=== PATIENT | female | born 1960 | race Caucasian/White ===

== ENCOUNTER 2017-04-16 01:53 | Emergency (ER) | payer OTHER ==
[~2017-04-16] VITALS: Ht 160 cm; Wt 71.7 kg
[~2017-04-16 01:53] MED LIST: ADDERALL 10 MG10 MG PO; LASIX 20 MG TAB20 MG PO; LIPITOR20 MG PO; MEDROL DOSPAK21 TA1 PO; MEDROLDOSEPACK PO; MELOXICAM15 MG PO; NORCO 10-325 T1 EACH PO; NORCO 5-325 TA1 EACH PO; OXYCONTIN20 M1 PO; SEROQUEL 50 MG50 MG PO; TEMAZEPAM30 MG PO; TYLENOL325 MG PO; XANAX 0.5 MG0.5 MG; XANAX 1 MG TABLE1 MG PO; XANAX1 MG PO; ZANTAC 150MG T150 MG PO
== END 2017-04-16 02:37 | disposition home or self-care (01) ==
LOC: ER 01:53
DX: S83.91XA Sprain of unspecified site of right knee, initial encounter (principal); F41.0 Panic disorder [episodic paroxysmal anxiety]; Z88.2 Allergy status to sulfonamides; W10.9XXA Fall (on) (from) unspecified stairs and steps, initial encounter; Y93.89 Activity, other specified; Y92.89 Other specified places as the place of occurrence of the external cause; Y99.8 Other external cause status

== ENCOUNTER 2017-05-06 09:19 | Emergency (ER) | payer OTHER ==
[~2017-05-06] VITALS: Ht 160 cm; Wt 72.6 kg
== END 2017-05-06 09:47 | disposition home or self-care (01) ==
LOC: ER 09:19
DX: Z76.0 Encounter for issue of repeat prescription (principal); F41.9 Anxiety disorder, unspecified; F32.9 Major depressive disorder, single episode, unspecified; F17.210 Nicotine dependence, cigarettes, uncomplicated; Z72.89 Other problems related to lifestyle; Z96.652 Presence of left artificial knee joint; Z88.2 Allergy status to sulfonamides

== ENCOUNTER → 2017-06-03 | Outpatient (CLI) | payer OTHER | LOC: MRI 06-02 14:18 | DX: S89.91XA Unspecified injury of right lower leg, initial encounter (principal); M17.11 Unilateral primary osteoarthritis, right knee; M25.461 Effusion, right knee; X58.XXXA Exposure to other specified factors, initial encounter; Y93.89 Activity, other specified; Y92.89 Other specified places as the place of occurrence of the external cause; Y99.8 Other external cause status ==

== ENCOUNTER 2018-11-19 17:53 | Emergency (ER) | payer OTHER ==
[~2018-11-19] VITALS: Ht 160 cm; Wt 77.1 kg
[~2018-11-19 17:53] MED LIST changes: +FLUOXETINE HCL40 MG PO; +OXYCONTIN40 MG PO; +REMERON15 MG PO; +RESTORIL15 MG PO; +TRAMADOL 50 MG50 MG PO; +VENTOLIN HFA 1818 GM INH; +XANAX 0.5 MG0.5 MG PO
[2018-11-19 18:24] LABS: ABSOLUTE NEUTROPHILS 4.2 thou/uL (1.4-8.2); BASOPHILS 1.4 % (0.0-2.0); EOSINOPHILS 3.4 % (0.0-3.0); HEMATOCRIT 41.7 % (37.0-47.0); HEMOGLOBIN 13.7 gm/dL (12.0-15.0); LYMPHOCYTES 23.7 % (24.0-44.0); MCH 28.7 pg (26.0-34.0); MCV 87.2 fL (80.0-100.0); MONOCYTES 5.1 % (1.0-8.0); PLATELET COUNT 265 thou/uL (150-400); POLYS 66.4 % (36.0-66.0); RBC 4.78 mil/uL (4.20-5.00); RDW 17.8 % (10.5-14.5); WBC 6.3 thou/uL (4.0-11.0)
[2018-11-19 18:32] LABS: ANION GAP 7 mmol/L (7-16); BUN 6 mg/dL (7-18); CHLORIDE 101 mmol/L (98-107); CO2 29 mmol/L (21-32); CREATININE 0.7 mg/dL (0.6-1.0); GLUCOSE 96 mg/dL (74-106); POTASSIUM 3.6 mmol/L (3.5-5.1); SODIUM 137 mmol/L (136-145)
[2018-11-19 18:40] LABS: ALBUMIN 3.7 g/dL (3.4-5.0); SALICYLATE 6.2 mg/dL (2.8-20.0); SGOT 16 U/L (15-37); SGPT 16 U/L (30-65); TOTAL BILIRUBIN 0.3 mg/dL (<0.1-1.0); TOTAL PROTEIN 7.7 g/dL (6.4-8.2); TROPONIN-I <0.06 ng/mL (<0.06)
[2018-11-19] MEDS ORDERED: XANAX1 MG PO (19:01)
[2018-11-19] MEDS ORDERED: SUBOXONE 2 MG-1 EAC1 SUBLING (19:01)
[2018-11-19 19:49] LABS: URINE BILIRUBIN NEGATIVE (Negative); URINE BLOOD TRACE (Negative); URINE CLARITY CLEAR; URINE COLOR YELLOW; URINE GLUCOSE-RANDOM* NEGATIVE (Negative); URINE KETONES NEGATIVE (Negative); URINE LEUKOCYTES-REFLEX NEGATIVE (Negative); URINE NITRITE-REFLEX NEGATIVE (Negative); URINE PROTEIN (DIPSTICK) NEGATIVE (Negative); URINE SPECIFIC GRAVITY 1.025 (1.005-1.035); URINE UROBILINOGEN 0.2 E.U./dl (0.2-1.0)
[2018-11-19] MEDS ORDERED: PREDNISONE 20 M20 M1 PO (19:56)
[2018-11-19] MEDS ORDERED: LEVAQUIN 500 M500 M1 PO (19:56)
[2018-11-19 19:57] LABS: AMP/METHAMP Negative (Negative); BARBITURATES Negative (Negative); BENZODIAZEPINES POSITIVE (Negative); COCAINE Negative (Negative); METHADONE Negative (Negative); OPIATES Negative (Negative); PCP Negative (Negative)
[2018-11-19] MEDS ORDERED: VENTOLIN HFA 1818 GM INH (21:15)
[2018-11-19 22:04] VITALS: BP 99/54
--- NOTE | 2018-11-20 21:59 | EKG ---
[address] [address] ELECTROCARDIOGRAM REPORT Name: DIMA MOY Room #: DEP [facility]#: [id number] Admission: 11/19/18 Attend Phys: Discharge: 11/19/18 Date of : 58 Report #: [id number] THIS REPORT FOR: //name// [facility] ED Test Date: 2018-11-19 Test Time: 18:22:35 Pat Name: DIMA MOY Department: Room: Gender: F [employer] Steward: brodie : 1960 Requested By: Zac Dukes Order Number: [id number] MD: Milo Chu Measurements Intervals [place] Rate: 100 P: 45 GA: 137 QRS: 56 QRSD: 87 T: 46 QT: 348 QTc: 449 Interpretive Statements Sinus tachycardia Probable left atrial enlargement Baseline wander in lead(s) V3 Compared to ECG 03/03/2015 13:48:36 Sinus rhythm no longer present Electronically Signed On 11-20-2018 21:59:20 PODIATRY DOCTOR by Milo Chu [email or web address] <ELECTRONICALLY SIGNED> By: Milo Chu MD 11/20/18 [id number] Milo Chu MD /RICCI
== END 2018-11-19 22:06 | disposition home or self-care (01) ==
LOC: ER 17:53
PROVIDERS: Emergency Medicine
DX: J44.9 Chronic obstructive pulmonary disease, unspecified (principal); F17.210 Nicotine dependence, cigarettes, uncomplicated; F32.9 Major depressive disorder, single episode, unspecified; Z88.2 Allergy status to sulfonamides; Z88.8 Allergy status to other drugs, medicaments and biological substances; Z96.652 Presence of left artificial knee joint

== ENCOUNTER 2019-11-21 14:58 | Emergency (ER) | payer OTHER ==
[~2019-11-21] VITALS: Ht 160 cm; Wt 90.7 kg
[~2019-11-21 14:58] MED LIST changes: +LEVAQUIN 500 M500 M1 PO; +PREDNISONE 20 M20 M1 PO; +SUBOXONE 2 MG-1 EAC1 SUBLING
[2019-11-21] MEDS ORDERED: XANAX 0.5 MG0.5 M1 PO (16:10)
[2019-11-21] MEDS ORDERED: TEMAZEPAM30 MG PO (16:13)
[2019-11-21] MEDS ORDERED: CYMBALTA60 MG PO (16:13)
[2019-11-21 16:32] VITALS: BP 115/74
== END 2019-11-21 16:33 | disposition home or self-care (01) ==
LOC: ER 14:58
DX: Z76.0 Encounter for issue of repeat prescription (principal); F32.9 Major depressive disorder, single episode, unspecified; Z88.2 Allergy status to sulfonamides; Z88.8 Allergy status to other drugs, medicaments and biological substances; F17.210 Nicotine dependence, cigarettes, uncomplicated

== ENCOUNTER 2019-11-28 14:43 | Emergency (ER) | payer OTHER ==
[~2019-11-28] VITALS: Ht 160 cm; Wt 72.6 kg
[~2019-11-28 14:43] MED LIST changes: +CYMBALTA60 MG PO; +XANAX 0.5 MG0.5 M1 PO
[2019-11-28 17:26] VITALS: BP 142/78
== END 2019-11-28 17:26 | disposition home or self-care (01) ==
LOC: ER 14:43
DX: Z76.0 Encounter for issue of repeat prescription (principal); F32.9 Major depressive disorder, single episode, unspecified; Z96.652 Presence of left artificial knee joint

== ENCOUNTER 2020-07-02 13:23 | Emergency (ER) | payer OTHER ==
[~2020-07-02] VITALS: Ht 160 cm; Wt 86.2 kg
[2020-07-02 13:28] VITALS: BP 137/98
[2020-07-02] MEDS ORDERED: NORCO 10-325 T1 EACH PO (14:12)
== END 2020-07-02 14:13 | disposition home or self-care (01) ==
LOC: ER 13:23
DX: M25.561 Pain in right knee (principal); M79.89 Other specified soft tissue disorders; Z96.653 Presence of artificial knee joint, bilateral; F32.9 Major depressive disorder, single episode, unspecified; F41.0 Panic disorder [episodic paroxysmal anxiety]; Z79.899 Other long term (current) drug therapy; Z88.2 Allergy status to sulfonamides; Z88.8 Allergy status to other drugs, medicaments and biological substances; F17.210 Nicotine dependence, cigarettes, uncomplicated

== ENCOUNTER → 2020-07-02 | Outpatient (CLI) | payer OTHER | LOC: NUC 08:42 | PROVIDERS: ATTEND Orthopaedic Surgery | DX: Z96.651 Presence of right artificial knee joint (principal) ==

== ENCOUNTER → 2020-11-29 | Outpatient (CLI) | payer OTHER | END | disposition home or self-care (01) | LOC: ULTRA 09:40 | PROVIDERS: ATTEND Orthopaedic Surgery | DX: M25.561 Pain in right knee (principal); M17.11 Unilateral primary osteoarthritis, right knee; F41.9 Anxiety disorder, unspecified; Z96.651 Presence of right artificial knee joint; Z98.890 Other specified postprocedural states; Z79.899 Other long term (current) drug therapy; Z88.2 Allergy status to sulfonamides; Z88.8 Allergy status to other drugs, medicaments and biological substances ==